=== PATIENT | female | born 1955 | race Caucasian/White ===

== ENCOUNTER → 2021-02-02 | Outpatient (CLI) | payer MEDICARE, OTHER ==
[~2021-02-02] MED LIST: ASPI-963 PO; ASPI81TA45 PO; ATOR40TA78 PO; LEVO25TA4 PO; METO25TA35 PO; NITR0.4T28 SL; NITR12SP10 SL; PANT40TA6 PO; TICA90TA PO
== END | disposition home or self-care (01) ==
LOC: CVU 12:03
PROVIDERS: ATTEND Internal Medicine Cardiovascular Disease
DX: I37.1 Nonrheumatic pulmonary valve insufficiency (principal); I31.3 Pericardial effusion (noninflammatory); I25.10 Atherosclerotic heart disease of native coronary artery without angina pectoris; I65.23 Occlusion and stenosis of bilateral carotid arteries; I10 Essential (primary) hypertension; E78.5 Hyperlipidemia, unspecified
CPT/HCPCS: 93306; 93880